=== PATIENT | female | born 1955 | race African-American/Black ===

== ENCOUNTER 2022-04-29 14:15 | Emergency (ER) | payer MEDICARE, MEDICAID ==
[~2022-04-29] VITALS: Ht 167.6 cm; Wt 76.0 kg
[2022-04-29 14:24] VITALS: BP 115/71
[2022-04-29] MEDS ORDERED: IBUPROFEN 400MG TABLET PO ONE (18:30)
[2022-04-29] MEDS ORDERED: IBUP-2028 MT (20:52)
== END 2022-04-29 21:04 | disposition home or self-care (01) ==
LOC: ER 14:15
DX: S80.11XA Contusion of right lower leg, initial encounter (principal); M79.662 Pain in left lower leg; M25.572 Pain in left ankle and joints of left foot; M25.571 Pain in right ankle and joints of right foot; M25.562 Pain in left knee; M25.561 Pain in right knee; V49.49XA Driver injured in collision with other motor vehicles in traffic accident, initial encounter; Y93.89 Activity, other specified; Y92.488 Other paved roadways as the place of occurrence of the external cause
CPT/HCPCS: 73560; 73590; 73610; 73630; 93970; 99284